=== PATIENT | female | born 1940 | race Caucasian/White ===

== ENCOUNTER 2016-06-05 13:54 | Emergency (ER) | payer MEDICAID, OTHER ==
[~2016-06-05] VITALS: Ht 157.5 cm; Wt 77.0 kg
[~2016-06-05 13:54] MED LIST: ACET325T33 PO
[2016-06-05 14:00] VITALS: Ht 157.5 cm; Wt 77.0 kg
--- NOTE | 2016-06-05 14:46 | ERD ---
ER Documentation Chief Complaint Date/Time DATE: 06/05/16 TIME: 14:40 Chief Complaint flu s/sx x 2 wks HPI Pleasant 76-year-old female presents to emergency department with granddaughter for translation, patient speaks M[place]. Patient has 2-3 week history of cough , nasal congestion, sore throat, postnasal drip, intermittent tactile fever, fever has subsided at this time today. Patient has tried using over-the- counter medication for symptomatic relief with little relief of symptoms. Patient reports worse symptoms today is runny nose, and constant coughing. Cough is keeping her up at night. Denies shortness of breath chest pain palpitations or dizziness. Patient denies back pain, dysuria, nausea or vomiting. Denies history of asthma, smoking, is brought in by granddaughter who has just been diagnosed with bronchitis, also has 1-month-old great granddaughter at home. ROS All systems reviewed and are negative except as per history of present illness. Medications Home Meds Active Scripts Fluticasone Propionate (Flonase Allergy Relief) 9.9 Ml [place].susp, 1 SPRAY NASAL BID, #1 BOTTLE TO EACH NOSTRIL Prov:TANMAY,MEHRAN 06/05/16 Amoxicillin/Potassium Clav (Amox-Clav 875-125 mg Tablet) 875-125 mg Tab, 1 TAB PO BID for 10 Days, #20 TAB Prov:TANMAY,MEHRAN 06/05/16 Acetaminophen* (Tylenol*) 325 Mg Tablet, 1-2 TAB PO Q6 Y for PAIN AND OR ELEVATED TEMP, #30 TAB Prov:GREGORIA VICENTE PA-C 06/30/15 Allergies Allergies: Coded Allergies: No Known Allergy (Unverified , 06/30/15) PMhx/Soc History of Surgery: Yes (laser eye surgery) Hx Alcohol Use: No Hx Substance Use: No Hx Tobacco Use: No Physical Exam Vitals Vital Signs Date Time Temp Pulse Resp B/P Pulse Ox O2 Delivery O2 Flow Rate FiO2 06/05/16 14:00 99.0 99 20 158/88 99 Vitals stable, nursing notes reviewed Physical Exam Const: No acute distress, coughing intermittently throughout the visit Head: Atraumatic Eyes: Normal Conjunctiva ENT: Tympanic membranes translucent, positive light reflex, nasal mucosa moist, wet, turbinates +2, no bleeding points, symptoms midline, pharynx injected, uvula rises with positive pronation. Neck: Full range of motion..~ No meningismus. No cervical chain nodes Resp: Even and unlabored, clear to auscultation, no rales wheezes or rhonchi. Cardio: Regular rate and rhythm, no murmurs Abd: Skin: Back: No midline or flank tenderness Ext: No cyanosis, or edema Neur: Awake and alert Psych: Normal Mood and Affect Procedures/MDM Pleasant 76-year-old female presents to emergency department with daughter, symptoms have been ongoing for 2-3 weeks. Patient reports illness started as upper respiratory infection or nasal allergies with runny nose, cough, sore throat, and ear congestion. Patient now has a runny nose, postnasal drip, cough. Patient is in no acute distress, skin is dry, chest is clear to auscultation, patient is afebrile. Pneumonia is not likely. Findings consistent with sinusitis and postnasal drip. I feel the patient is a candidate for outpatient therapy and is stable for discharge at this time. I have prescribed Augmentin 875 mg 1 tab p.o. twice daily 10 days and Flonase nasal spray. I have discussed examination findings, the treatment plan with the patient and family present prior to discharge. Indications for emergent reevaluation (worsening of cough, fever, shortness of breath, chest pain, palpitations, or dizziness) , side effects of medication were also discussed. All questions were answered. Patient verbalizes understanding and agrees with plan of care. Departure Condition: Good MEHRAN DONATO Jun 05, 2016 14:45
[2016-06-05] MEDS ORDERED: AMOX1TAB10 PO (15:01)
[2016-06-05] MEDS ORDERED: FLUT9.9S NASAL (15:01)
== END 2016-06-05 15:02 | disposition home or self-care (01) ==
LOC: E/R 13:54
DX: J01.90 Acute sinusitis, unspecified (principal)
CPT/HCPCS: 99283

== ENCOUNTER 2016-06-10 11:42 | Emergency (ER) | payer OTHER ==
[~2016-06-10] VITALS: Wt 75.0 kg
[~2016-06-10 11:42] MED LIST changes: +AMOX1TAB10 PO; +FLUT9.9S NASAL
[2016-06-10] MEDS ORDERED: ACETAMINOPHEN 500 MG TAB PO STA (12:43)
--- NOTE | 2016-06-10 14:10 | RADRPT ---
PROCEDURE: XR Chest. CLINICAL INDICATION: 76-year-old female with pain after a fall. TECHNIQUE: Single frontal view of the chest was obtained COMPARISON: No. FINDINGS: The soft tissues are normal. There are degenerative osteophytes in the thoracic spine. No acute [place] fracture is identified. The heart is a transverse configuration from a poor inspiration. The ca rdiomediastinal silhouette, pulmonary vasculature and hilar structures are normal. There are splenic calcifications in the less aorta. There is compressive atelectasis in the bases of the lungs from a poor inspiration. The costophrenic angles are normal. IMPRESSION: 1. Atherosclerosis of the aortic arch. 2. Spondylosis of the thoracic spine. 3. No pneumothorax, hemothorax or pulmonary contusion is identified. No acute bony fracture is not ed. RPTAT:AAJJ Physician Deja Date Time Electronically viewed and signed by Physician Deja on 06/10/2016 14:10 /
--- NOTE | 2016-06-10 14:22 | RADRPT ---
PROCEDURE: XR left hip. CLINICAL INDICATION: Hip pain TECHNIQUE: Two views available for review. COMPARISON: None available FINDINGS: The osseous structures are normal in mineralization, architecture and alignment. No fractures are i dentified. No osseous lesions are identified. The joints are unremarkable. The soft tissues are u nremarkable. IMPRESSION: Unremarkable examination RPTAT: HGDB .Rajeev Quispe MD, MD Date Time Electronically viewed and signed by .Rajeev Quispe MD, on 06/10/2016 14:22 .B/
--- NOTE | 2016-06-10 14:26 | RADRPT ---
PROCEDURE: XR left knee. CLINICAL INDICATION: Knee pain TECHNIQUE: 3 views are available for review. COMPARISON: None available FINDINGS: There is calcific enthesopathy involving the anterior superior aspect of the patella. There is mild to moderate osteoarthrosis involving the medial tibial femoral compartment, lateral tibial femoral c ompartment and patellofemoral compartment. This is associated with joint space narrowing, subchondra l sclerosis and osteophytosis. There is an old healed proximal fibular fracture and possible lateral plateau fracture. The osseous structures are otherwise normal in mineralization, architecture and alignment. No acute fractures are identified. No osseous lesions are identified. The soft tissues are unremarkable. Th ere is arterial vascular calcification IMPRESSION: Calcific enthesopathy involving the anterior superior aspect of the patella. Moderate osteoarthrosis involving the medial tibial femoral compartment, lateral tibial femoral comp artment and patellofemoral compartment. Old healed proximal fibular fracture and possible lateral tibial plateau fracture RPTAT: HGDB .Rajeev Quispe MD, MD Date Time Electronically viewed and signed by .Rajeev Quispe MD, on 06/10/2016 14:26 .B/
--- NOTE | 2016-06-10 14:28 | RADRPT ---
PROCEDURE: XR Lumbar Spine. CLINICAL INDICATION: Low back pain. TECHNIQUE: Two views of the lumbar spine available for review COMPARISON: 06/30/2015 FINDINGS: There is normal mineralization. There is a 5 mm L5 on S1 anterolisthesis. There is a 3 mm L3 on L4 r etrolisthesis No fracture or osseous lesion is identified. There is moderate L1-4 and L5-S1 degenera tive disk disease. This is associated with joint space narrowing, endplate sclerosis and spondylosis . There is moderate to severe L5-S1 facet arthrosis. The soft tissues are unremarkable. There is abd ominal aortic vascular calcification IMPRESSION: 5 mm L5 on S1 anterolisthesis 3 mm L3 on L4 retrolisthesis Moderate L1-4 and L5-S1 degenerative disk disease. Moderate to severe L5-S1 facet arthrosis RPTAT: HGDB .Rajeev Quispe MD, Date Time Electronically viewed and signed by .Rajeev Quispe MD, on 06/10/2016 14:28 .B/
[2016-06-10] MEDS ORDERED: ACET500C5 PO (14:50)
[2016-06-10] MEDS ORDERED: TRAM-40 PO (14:50)
[2016-06-10] MEDS ORDERED: D-ME473S18 PO (14:50)
--- NOTE | 2016-06-10 14:57 | ERD ---
ER Documentation Chief Complaint Date/Time DATE: 06/10/16 TIME: 14:53 Chief Complaint slip and fall last night. left knee pain and leg pain . unable to walk HPI 76-year-old female slipped and fell last night she fell forward complains of left knee pain. Difficulty walking due to pain. She also has an additional complaint of a cough is nonproductive without fevers for last week. She also some mild low back pain. The pain is primarily left knee is slightly in her left proximal femur area. ROS All systems reviewed and are negative except as per history of present illness. Medications Home Meds Active Scripts Tramadol Hcl* (Ultram*) 50 Mg Tablet, 50 MG PO Q6H Y for PAIN, #15 TAB Prov:KOKO LUCAS MD 06/10/16 Dextromethorphan Hb-Promethazine Hcl (Promethazine DM Syrup) 473 Ml Syrup, 5 ML PO Q6 Y for COUGH for 4 Days, ML Prov:KOKO LUCAS MD 06/10/16 Acetaminophen* (Tylophen*) 500 Mg Capsule, 1 CAP PO Q6H Y for PAIN AND OR ELEVATED TEMP, #20 CAP Prov:KOKO LUCAS MD 06/10/16 Fluticasone Propionate (Flonase Allergy Relief) 9.9 Ml [place].susp, 1 SPRAY NASAL BID, #1 BOTTLE TO EACH NOSTRIL Prov:TANMAY,MEHRAN 06/05/16 Amoxicillin/Potassium Clav (Amox-Clav 875-125 mg Tablet) 875-125 mg Tab, 1 TAB PO BID for 10 Days, #20 TAB Prov:TANMAY,MEHRAN 06/05/16 Acetaminophen* (Tylenol*) 325 Mg Tablet, 1-2 TAB PO Q6 Y for PAIN AND OR ELEVATED TEMP, #30 TAB Prov:GREGORIA VICENTE PA-C 06/30/15 Allergies Allergies: Coded Allergies: No Known Allergy (Unverified , 06/30/15) PMhx/Soc History of Surgery: Yes (laser eye surgery) Anesthesia Reaction: No Hx Neurological Disorder: No Hx Respiratory Disorders: No Hx Cardiac Disorders: No Hx Psychiatric Problems: No Hx Miscellaneous Medical Probl: No Hx Alcohol Use: No Hx Substance Use: No Hx Tobacco Use: No Physical Exam Vitals Vital Signs Date Time Temp Pulse Resp B/P Pulse Ox O2 Delivery O2 Flow Rate FiO2 06/10/16 11:45 98.6 86 21 148/84 95 Physical Exam Const: [] Alert, [id number] per Head: Atraumatic Eyes: Normal Conjunctiva ENT: Normal External Ears, Nose and Mouth. Neck: Full range of motion..~ No meningismus. Resp: Clear to auscultation bilaterally. Noticeable dry cough without wheezing or rales appreciated. Cardio: Regular rate and rhythm, no murmurs Abd: Soft, non tender, non distended. Normal bowel sounds Skin: No petechiae or rashes Back: No midline or flank tenderness. Minimal lower back tenderness without step-offs or deformities or midline tenderness. Ext: No cyanosis, or edema. Mild generalized left knee tenderness without deformities, effusion, erythema or warmth. Possible minimal left thigh tenderness without deformities or point tenderness. There is no significant appreciable pain with passive range of motion left hip. Neur: Awake and alert Psych: Normal Mood and Affect Results 24 hrs Current Medications Medications (Trade) Dose Ordered Sig/Tiago Route PRN Reason Start Time Stop Time Status Last Admin Dose Admin Acetaminophen (Tylenol Tab) 500 mg ONCE STAT PO 06/10/16 12:43 06/10/16 12:45 DC 06/10/16 13:03 Procedures/MDM Chest X-ray 1V Interpreted by me: Soft Tissue: No acute abnormalities Bones: No acute abnormalities Mediastinum/Cardiac Silhouette/Lungs: [No acute abnormalities]. Impression normal 1 view chest x-ray X-ray LS-Spine 3V Interpreted by me: Bones: [No fracture] Joints: [No dislocation] Foreign body: [None]. Impression-degenerative changes of the lumbar spine without fracture dislocation X-ray left hip 2V Interpreted by me: Bones: [No fracture] Joints: [No dislocation] Foreign body: [None]. Impression normal left hip x-ray X-ray left knee 3V Interpreted by me: Bones: Appears to be old fractures of left proximal fibula and possibly old lateral tibial plateau fracture Joints: No dislocation Foreign body: None. Impression-no acute findings on left knee x-ray degenerative changes and old fractures of the tibial plateau and proximal fibula Patient presents with URI symptoms and left knee pain low back pain after mechanical fall last night. There is no current signs of acute fracture, dislocation, neurologic deficit. She also has URI symptoms without evidence of pneumonia, respiratory distress, signs or symptoms of PE, or chest pain. Patient was treated with Tylenol, Tylenol and further observation at home. The patient was stable with no new complaints during the ER course. Clinically, there is no current evidence to suggest meningitis, sepsis, acute abdomen, pneumonia, acute coronary syndrome, pulmonary embolism, or any other emergent condition appearing to require further evaluation or hospitalization. There is no signs or symptoms of head injury or neck injury. the patient should certainly return for any new or worsening symptoms per the aftercare instructions. They should otherwise follow-up with her primary care doctor for reevaluation this week. Patient is advised to orthopedist for pain next week return to ER for fevers, vomiting, new worsening symptoms. Patient was placed in a left knee Jacobo bandage. Patient likely at risk for fall with further immobilization. Departure Diagnosis: Primary Impression: URI, acute Additional Impressions: Left knee sprain Encounter type: initial encounter Involved ligament of knee: unspecified ligament Qualified Code: S83.92XA - Sprain of left knee, unspecified ligament , initial encounter Back arthralgia Fall Encounter type: initial encounter Qualified Code: W19.XXXA - Fall, initial encounter Condition: Stable Patient Instructions: Contusion, Lower Extremity, Fall, Mechanical, Uri, Viral , No Abx (Adult) Additional Instructions: X-rays show no new abnormalities. See primary doctor and possible orthopedist for pain later this week or return for fevers, new or worsening symptoms KOKO LUCAS MD Jun 10, 2016 14:57
== END 2016-06-10 16:05 | disposition home or self-care (01) ==
LOC: FTE 11:42
DX: J06.9 Acute upper respiratory infection, unspecified (principal); S83.92XA Sprain of unspecified site of left knee, initial encounter; S39.92XA Unspecified injury of lower back, initial encounter; W01.0XXA Fall on same level from slipping, tripping and stumbling without subsequent striking against object, initial encounter; Y92.9 Unspecified place or not applicable
CPT/HCPCS: 71010; 72100; 73510; 73562; Z7502; Z7610

== ENCOUNTER 2018-01-20 23:42 | Inpatient (IN) | END 2018-01-28 16:48 | disposition home health service (06) | DRG 552 ==